=== PATIENT | male | born 1990 | race Two or more races ===

== ENCOUNTER 2024-12-26 19:24 | Emergency (ER) | payer OTHER ==
[~2024-12-26] VITALS: Ht 157.5 cm; Wt 56.7 kg
[2024-12-26] MEDS ORDERED: KETOROLAC TROMETHAMINE INJ 30 MG/ML VIAL ONE (20:39)
[2024-12-26] MEDS: KETOROLAC TROMETHAMINE INJ 30 MG/ML VIAL IM ONE (20:42)
[2024-12-26 21:14] VITALS: TEMP 98.4
[2024-12-26] MEDS ORDERED: LIDOCAINE HCL/PF 1% 30 ML SDV ONE (21:36)
[2024-12-26] MEDS: LIDOCAINE HCL/PF 1% 30 ML VIAL TP ONE (21:37)
[2024-12-26] MEDS ORDERED: IBUP-76 PO (22:43)
[2024-12-26] MEDS ORDERED: AMOX-430 PO (22:43)
[2024-12-26] MEDS ORDERED: ACET-2030 PO (22:43)
[2024-12-26 22:45] VITALS: BP 119/70; O2SAT 98
== END 2024-12-26 22:56 | disposition home or self-care (01) ==
LOC: ER 19:31
DX: S02.2XXA Fracture of nasal bones, initial encounter for closed fracture (principal); S01.21XA Laceration without foreign body of nose, initial encounter; W16.832A Jumping or diving into other water striking wall causing other injury, initial encounter; Y93.89 Activity, other specified; Y92.89 Other specified places as the place of occurrence of the external cause; Y99.8 Other external cause status
CPT/HCPCS: 12011; 70450; 70486; 72125; 96372; 99285; J1885; J3490

== ENCOUNTER 2025-01-04 12:32 | Emergency (ER) | payer OTHER ==
[~2025-01-04 12:32] MED LIST: ACET-2030 PO; AMOX-430 PO; IBUP-76 PO
== END 2025-01-04 12:50 | disposition left against medical advice (07) ==
LOC: ER 12:32
DX: S01.21XD Laceration without foreign body of nose, subsequent encounter (principal); Z48.02 Encounter for removal of sutures; Z53.21 Procedure and treatment not carried out due to patient leaving prior to being seen by health care provider; X58.XXXD Exposure to other specified factors, subsequent encounter